=== PATIENT | female | born 1965 | race African-American/Black ===

== ENCOUNTER 2020-02-29 15:23 | Inpatient (IN) | payer OTHER ==
--- NOTE | 2020-02-29 15:42 | BHS.RME ---
2019 N Coronavirus Screen - COVID-19 Screening Questions Dx of COVID-19 or had a positive test in the last 4 weeks?: No Contact with known/suspected COVID patient in last 14 days?: No Any of these symptoms or contact with someone who has?: None Traveled domestically/internationally in the last 14 days?: No Screen score: 0 Screen result: Further Evaluation Substance Use & Tx History - Substance Use History Alcohol Substance amount: 7 Nips Frequency of use: Daily Substance route: Oral Date of Last Use: 02/28/20 (Denies Seizures, Endorses 10 blackouts , last 6 months ago, Endorses daily eyeopener, First used at 13yo) Other Opiates/Synthetics Substance amount: Percocet 10 pills Frequency of use: Daily Substance route: Oral Date of Last Use: 02/29/20 (Denies OD, denies Narcan at home, first used in 50s.) Nicotine Substance amount: 1PPD Frequency of use: Daily Substance route: Smoking Date of Last Use: 02/29/20 (First used at 13yo) Physical/Psych/Mental Status - Behavior General Behavior: Increased activity (restlessness, agitation) Eye Contact: Normal - Cooperativeness Cooperativeness: Cooperative - Thinking Thought Processes: Logical, Goal Directed Thought content: Future oriented Perceptions: Hallucinations (auditory, visual, olfactory) (Devil saying that its ok to keep doing what you are doing. Pt. denies any thoughts of harming herself or anyone else. Pt. endorses seeing spots.) - Physical Health Problems Is patient presently having any pain?: Yes (Pain abdomen more prominent in the epigastrium) Does patient presently have any injuries (include location): No Does patient currently have a fever: No Is patient : No COWS - Scale Resting Pulse: 1= [place] 81-100 Sweatin= Chills/Flushing Restless Observation: 1= Difficult to Sit Still Pupil Size: 0= Normal to Room Light Bone or Joint Aches: 1= Mild Discomfort Runny Nose/ Eye Tearin= None GI Upset > 30mins: 5=Frequent Vomit/Diarrhea Tremor Observation: 2= Slight Tremor Visible Yawning Observation: 0= None Anxiety or Irritability: 2=Irritable/Anxious Goose Flesh Skin: 3=Piloerection COWS Score: 16 CIWA Nausea/Vomitin-Int. Nausea w/Dry Heave Muscle Tremors: 3 Anxiety: 3 Agitation: 3 Paroxysmal Sweats: 2 Orientation: 0-Oriented Tacttile Disturbances: 4-Moderate Hallucinations Auditory Disturbances: 5-Severe Hallucinations Visual Disturbances: 2-Mild Sensitivity Headache: 2-Mild CIWA-Ar Total Score: 28
--- NOTE | 2020-02-29 16:20 | HP ---
COWS - Scale Resting Pulse: 1= [place] 81-100 Sweatin= Chills/Flushing Restless Observation: 1= Difficult to Sit Still Pupil Size: 0= Normal to Room Light Bone or Joint Aches: 1= Mild Discomfort Runny Nose/ Eye Tearin= None GI Upset > 30mins: 5=Frequent Vomit/Diarrhea Tremor Observation: 2= Slight Tremor Visible Yawning Observation: 0= None Anxiety or Irritability: 2=Irritable/Anxious Goose Flesh Skin: 3=Piloerection COWS Score: 16 CIWA Score Nausea/Vomitin-Int. Nausea w/Dry Heave Muscle Tremors: 3 Anxiety: 3 Agitation: 3 Paroxysmal Sweats: 2 Orientation: 0-Oriented Tacttile Disturbances: 4-Moderate Hallucinations Auditory Disturbances: 5-Severe Hallucinations Visual Disturbances: 2-Mild Sensitivity Headache: 2-Mild CIWA-Ar Total Score: 28 - Admission Criteria [facility] Guidelines: Admission for Medically Managed Detox: Requires at least one of the followin. CIWA greater than 12 2. Seizures within the past 24 hours 3. Delirium tremens within the past 24 hours 4. Hallucinations within the past 24 hours 5. Acute intervention needed for co occurring medical disorder 6. Acute intervention needed for co occurring psychiatric disorder 7. Severe withdrawal that cannot be handled at a lower level of care (continued vomiting, continued diarrhea, abnormal vital signs) requiring intravenous medication and/or fluids 8. Patient presents the following: CIWA greater than 12 Admission Criteria Met: Admission criteria met Admitting History and Physical - Admission Chief Complaint: "Fatemeh I got an addiction to alcohol pills, cause I have a problem" History of Present Illness: Pt. presents for detox form alcohol and to stop taking Percocets for chronic back pain. Pt. sttes that the percocets are prescribed by her pain management doctor. ISTOP confirmed prescriptions of Percocet 60 pills for the month, which patient stated she finished in a week. Pt. states she was concerned about her increasing drinking while taking the Percocet and decided to come back to Detox. Pt. completed Detox here from 09/21/19 to 09/27/19. Pt. states she was sober for 6 months and then relapsed because of stress. Pt. endorses having Pancreatitis in the past because of alcohol. Pt. endorses taking Famotidine, Seroquel, and Symbicort. Pt. does not recall the other medications that she takes. Pt. states she does not take Trazodone any more because she "took like 8 of them and it doesnt work." Pt. states she was treated for TB 27 years ago. Pt. states she was told awhile ago in group home that she had Syphillis but denies ever being treated for it. PMHx: Osteoporosis, Sciatca, COPD, GERD PSHx: Denies Psych: Depression Social: Rents a house Legal: None - Substance Use History Alcohol Substance amount: 7 Nips Frequency of use: Daily Substance route: Oral Date of Last Use: 02/28/20 (Denies Seizures, Endorses 10 blackouts , last 6 months ago, Endorses daily eyeopener, First used at 13yo) Other Opiates/Synthetics Substance amount: Percocet 10 pills Frequency of use: Daily Substance route: Oral Date of Last Use: 02/29/20 (Denies OD, denies Narcan at home, first used in 50s.) Nicotine Substance amount: 1PPD Frequency of use: Daily Substance route: Smoking Date of Last Use: 02/29/20 (First used at 13yo) Marijuana 3 joints/day Smoke First used at 13, Last used yesterday History Source: Patient Limitations to Obtaining History: No Limitations - Past Medical History HORSE TREKKING GUIDE: No: CVA, Seizure, TIA Cardiovascular: Yes: Hyperlipdemia. No: Deep Vein Thrombosis, [place] Pulmonary: Yes: COPD. No: Pulmonary Embolus Gastrointestinal: Yes: GERD, GI Bleed (6 months ago, drinking and then her stool started turning black), Pancreatitis Hepatobiliary: No: Hepatitis B, Hepatitis C Heme/Onc: No: Sickle Cell Disease, Sickle Cell Trait Infectious Disease: Yes: Tuberculosis (Hx. of TB 27 years ago). No: AIDS, HIV Psych: Yes: Addictions, Depression Musculoskeletal: Yes: Chronic low back pain Endocrine: Yes: Diabetes Insipidus (Pre-Diabetic) - Past Surgical History Past Surgical History: Yes: None - Smoking History Smoking history: Current every day smoker Have you smoked in the past 12 months: Yes Aproximately how many cigarettes per day: 20 - Alcohol/Substance Use Hx Alcohol Use: Yes Number of Drinks Daily: 7 History of Substance Use: reports: Marijuana, Prescription (Percocets) Admission ROS S - [facility] Allergies/Adverse Reactions: Allergies Allergy/AdvReac Type Severity Reaction Status Date / Time No Known Drug Allergies AdvReac Verified 09/21/19 12:40 Exam Limitations: No Limitations - Review of Systems Constitutional: Chills, Diaphoresis (drenching sweat day and night), Loss of Appetite (Has not eaten in 7 days), Unintentional Wgt. Loss (Lost 3 lbs. over te last week) EENT: reports: Blurred Vision (chronic. getting worse over years), Other (dry throat). denies: Difficulty Swallowing, Throat Pain Respiratory: denies: Cough, Shortness of Breath, Wheezing Cardiac: denies: Chest Pain, Palpitations GI: reports: Nausea, Poor Appetite, Vomiting (Over 10 times). denies: Constipated, Diarrhea, Difficulty Swallowing, Rectal Bleeding, Tarry Stools : denies: Burning, Dysuria Musculoskeletal: reports: Back Pain (chronic), Muscle Weakness (Generalized weakness) Integumentary: reports: Pruritus (Has been going on for 7 days). denies: Bruising, Rash Neuro: reports: Numbness (Alternated from one hand to the other for the last year), Tingling (Alternated from one hand to the other for the last year), Weakness (generalized). denies: Headache, Seizure, Tremors Endocrine: reports: Excessive Sweating Hematology: denies: Blood Clots Psychiatric: reports: Orientated x3, Anxious, Depressed Patient History - Patient Medical History Hx Asthma: Yes Hx Chronic Obstructive Pulmonary Disease (COPD): No Hx Cardiac Disorders: No Hx Hypertension: No Hx Seizures: No Hx Diabetes: No Hx Gastrointestinal Disorders: Yes (Hx of acid reflux.) Hx Genitourinary Disorders: No Hx Sexually Transmitted Disorders: Yes (Hx of syphillis.) Hx Renal Disease (ESRD): No Hx Depression: Yes (NOT IN [place]) Hx Suicide Attempt: No Hx Schizophrenia: No - Patient Surgical History Past Surgical History: No - PPD History Date: 09/23/19 - Reproductive History Patient is a Female of Child Bearing Age (11 -55 yrs old): Yes Patient : No - Smoking Cessation Smoking history: Current every day smoker Have you smoked in the past 12 months: Yes Aproximately how many cigarettes per day: 20 Hx Chewing Tobacco Use: No Initiated information on smoking cessation: Yes 'Breaking Loose' booklet given: 02/29/20 - Substance & Tx. History Hx Alcohol Use: Yes Substance Use Type: Alcohol, Heroin, Opiates, Prescribed Admission Physical Exam [facility] - Physical General Appearance: Yes: Mild Distress, Anxious HEENTM: Yes: EOMI, Hearing grossly Normal, Normocephalic, Normal Voice, CARLOZ, Pharynx Normal, Scleral Ictenus R, Scleral Ictenus L. No: Thrush, [place] Respiratory: Yes: Chest Non-Tender, No Respiratory Distress, No Accessory Muscle Use, Wheezing. No: Crackles Neck: Yes: Within Normal Limits, Trachea in good position Breast: Yes: Breast Exam Deferred Cardiology: Yes: Regular Rhythm, S1, S2, Tachycardia. No: JVD Abdominal: Yes: Soft, Decreased BS, Tenderness (Diffuse but most prominent in Epigastrium and RLQ) Genitourinary: No: Burning Back: Yes: Within Normal Limits, Normal Inspection. No: CVA Tenderness Musculoskeletal: Yes: Gait Steady. No: Back pain Extremities: Yes: Normal Inspection, Normal Range of Motion, Non-Tender. No: Coldness, Pedal Edema, Swelling, Calf Tenderness Neurological: Yes: Alert, Motor Strength 5/5, Normal Mood/Affect, Normal Response. No: Facial Droop, Numbness Integumentary: Yes: Normal Color, Dry, Warm Cleared for Admission [facility] - Detox or Rehab [facility] Level of Care: Medically Managed Detox Regimen/Protocol: Clonidine/Valium Claeared for Rehab Admission: No Breathalyzer - Breathalyzer Breathalyzer: 0 POC Urine test - Control test control: No Urine Drug Screen - Test Device Lot number: [id number] Expiration date: 12/26/20 - Control Is test valid?: Yes - Results Drug screen NEGATIVE: No Urine drug screen results: THC-Marijuana, OXY-Oxycodone Inpatient Rehab Admission - Rehab Decision to Admit Inpatient rehab admission?: No
[2020-02-29 16:33] VITALS: BMI 25.4
[2020-02-29] MEDS ORDERED: NICOTINE POLACRILEX 2 MG GUM BUC PRN ×2 (16:53→16:57)
[2020-02-29] MEDS ORDERED: ACETAMINOPHEN 325 MG TABLET (FP) PO PRN ×2 (16:53)
[2020-02-29] MEDS ORDERED: MAG HYDROX/AL HYDROX/SIMETH 30 ML UNIT-DOSE CUP PO PRN (16:53)
[2020-02-29] MEDS ORDERED: MAGNESIUM CITRATE 300 ML BOTTLE PO PRN (16:53)
[2020-02-29] MEDS ORDERED: MENTHOL/PHENOL 1 EACH UD MM PRN (16:53)
[2020-02-29] MEDS ORDERED: IBUPROFEN 400 MG TABLET (FP) PO PRN (16:53)
[2020-02-29] MEDS ORDERED: BISMUTH SUBSALICYLATE 524 MG/30 ML UD PO PRN (16:53)
[2020-02-29] MEDS ORDERED: ONDANSETRON *ODT* 4 MG TABLET SL PRN (16:53)
[2020-02-29] MEDS ORDERED: MAGNESIUM HYDROX 2400MG/30ML ORAL SUSPENSION 30 ML CUP PO PRN (16:53)
[2020-02-29] MEDS ORDERED: cloNIDine HCL 0.1 MG TABLET PO PRN (16:58)
[2020-02-29] MEDS ORDERED: PENICILLIN G BENZATHINE 2,400,000 UNIT/4 ML PFS IM ONE (17:08)
[2020-02-29] MEDS ORDERED: TRIMETHOBENZAMIDE HCL 200MG/2ML INJ IM ONE (17:21)
[2020-02-29] MEDS: hydrOXYzine PAMOATE 25 MG CAPSULE (FP) PO SCH ×2 (18:26→22:08)
[2020-02-29] MEDS: diazePAM 5 MG TABLET PO SCH ×2 (18:26→22:08)
--- NOTE | 2020-02-29 19:03 | PN ---
Teaching Attending Note Name of Resident: Jose Luis Mckenzie ATTENDING PHYSICIAN STATEMENT I saw and evaluated the patient. I reviewed the resident's note and discussed the case with the resident. I agree with the resident's findings and plan as documented. SUBJECTIVE: 54 y.o. female requesting detox from alcohol use , s/p recent relapse. on RX Percocet which she claims she is misuring , abusing w/o discussing w/ prescriber . OBJECTIVE: wnwd ASSESSMENT AND PLAN: AUD - Valium detox Opiate abuse vs misuse - pt to address w/ prescriber .
[2020-02-29] MEDS: MELATONIN 5 MG TABLETS PO SCH (22:08)
[2020-02-29] MEDS: THIAMINE HCL 100 MG TABLET (FP) PO SCH (22:08)
[2020-02-29] MEDS: BUDESONIDE/FORMETEROL FUMARATE 80/4.5 mcg INHALER IH SCH (22:10)
[2020-03-01] MEDS: hydrOXYzine PAMOATE 25 MG CAPSULE (FP) PO SCH ×2 (06:37→10:40)
[2020-03-01] MEDS: diazePAM 5 MG TABLET PO SCH ×4 (06:37→22:08)
--- NOTE | 2020-03-01 08:59 | CONSULT ---
[facility] Psychiatric Consult - Data Date of interview: 03/01/20 Admission source: Self-referred Identifying data: Ms Pimentel is a 54 years old single Black female, mother of 3 children, unemployed receiving unemployment benefit, living with her boyfriend seeking detox treatment for alcohol, opioid and cannabis Substance Abuse History: Reports history of alcohol, prcocet and marijuana use. Refer to addiction counselor's summary for further information Medical History: Significant for COPD, GERD, osteoporosis, sciatica, history of treatment for pancreatitis, +PPD while incarcerated and syphilis. Smokes cigarettes 1 ppd Psychiatric History: Patient is known for one previous admission to this facility. During that admission, she reported that she saw a psychiatrist for only 2 weeks in 2010 after her son was murdered. She was diagnosed with MDD and started on medication. She said she hardly took that medication. She complained of sleeping poorly and she was prescribed Belsomra 10 mg/hs prn. Now she reports that after she was discharged from this facility, she was referred to [facility] for inpatient rehab. She said that while there, she was prescribed Seroquel which was raised up to 400 mg/bid by their staff psychiatrist for depression and anxiety. She said upon completing inpatient rehab she was referred to outpatient substance abuse at [facility] and continues to receives medications. Told script writer that she stopped taking medications for over 2 weeks after relapsing. Denies previous psychiatric hospitalization or suicidal attempt. At present, reports feeling depressed, anxious and sleeping poorly. Requests to resume Seroquel and insists of having it twice daily Physical/Sexual Abuse/Trauma History: Denies history of abuse as a child or DV relationship as an adult Mental Status Exam - Mental Status Exam Alert and Oriented to: Time, Place, Person Cognitive Function: Fair Patient Appearance: Disheveled Mood: Depressed, Anxious, Irritable Affect: Appropriate Patient Behavior: Cooperative Speech Pattern: Clear Voice Loudness: Normal Thought Process: Intact, Goal Oriented Hallucinations: Denies Suicidal Ideation: Denies Homicidal Ideation: Denies Insight/Judgement: Poor Sleep: Poorly Appetite: Poor Muscle strength/Tone: Normal Gait/Station: Normal Psychiatric Findings - Problem List ([place] 1, 2,3) (1) Substance induced mood disorder Current Visit: Yes Status: Acute (2) Substance-induced anxiety disorder Current Visit: Yes Status: Acute (3) Substance-induced sleep disorder Current Visit: Yes Status: Acute (4) Alcohol dependence, uncomplicated Current Visit: Yes Status: Acute (5) Opioid dependence Current Visit: Yes Status: Acute (6) Cannabis dependence Current Visit: Yes Status: Acute (7) Nicotine dependence Current Visit: No Status: Chronic (8) COPD (chronic obstructive pulmonary disease) Current Visit: Yes Status: Chronic (9) Osteoporosis Current Visit: Yes Status: Chronic (10) Sciatica associated with disorder of lumbar spine Current Visit: Yes Status: Chronic (11) GERD (gastroesophageal reflux disease) Current Visit: No Status: Chronic (12) PPD positive, treated Current Visit: Yes Status: Acute - Initial Treatment Plan Initial Treatment Plan: 1) Start Seroquel 50 mg po BID. 2) Continue inpatient detoxification
--- NOTE | 2020-03-01 09:09 | EKG ---
Test Reason : Blood Pressure : / mmHG Vent. Rate : 066 BPM Atrial Rate : 066 BPM P-R Int : 136 ms QRS Dur : 094 ms QT Int : 414 ms P-R-T Axes : 044 068 062 degrees QTc Int : 434 ms NORMAL SINUS RHYTHM NORMAL ECG WHEN COMPARED WITH ECG OF 22-SEP-2019 10:05, NO SIGNIFICANT CHANGE WAS FOUND Confirmed by MD NAWAF, ALKA ([id number]) on 03/01/2020 9:08:57 AM Referred By: Confirmed By:ALKA MCCRACKEN MD
[2020-03-01] MEDS ORDERED: NICOTINE 7 MG/24 HOURS TOPICAL PATCH TD SCH (10:00)
[2020-03-01] MEDS ORDERED: METHADONE (DETOX) 20 MG, METHADONE (DETOX) 5 MG PO SCH (10:04)
[2020-03-01] MEDS ORDERED: METHADONE HCL 10 MG TABLET (FOR DETOX USE ONLY) PO ONE (10:04)
[2020-03-01] MEDS ORDERED: METHADONE HCL 5 MG TABLET (FOR DETOX USE ONLY) ONE (10:18)
[2020-03-01] MEDS ORDERED: METHADONE HCL 10 MG TABLET (FOR DETOX USE ONLY) ONE (10:18)
[2020-03-01] MEDS: FAMOTIDINE 20 MG TABLET PO SCH (10:22)
[2020-03-01] MEDS: QUEtiapine FUMARATE 50 MG TABLET PO SCH ×2 (10:22→22:08)
[2020-03-01] MEDS: BUDESONIDE/FORMETEROL FUMARATE 80/4.5 mcg INHALER IH SCH ×2 (10:26→22:08)
[2020-03-01] MEDS: NICOTINE 21 MG/24 HOURS TOPICAL PATCH TD SCH (10:27)
[2020-03-01] MEDS: PRENATAL VITAMINS W/ FOLIC ACID TABLET (FP) PO SCH (10:27)
[2020-03-01] MEDS: NICOTINE POLACRILEX 4 MG GUM BUC PRN ×3 (10:28→20:32)
--- NOTE | 2020-03-01 10:54 | PN ---
[facility] CIWA - CIWA Score Nausea/Vomitin-Mild Nausea/No Vomiting Muscle Tremors: 3 Anxiety: 3 Agitation: 3 Paroxysmal Sweats: 3 Orientation: 0-Oriented Tacttile Disturbances: 0-None Auditory Disturbances: 0-None Visual Disturbances: 0-None Headache: 0-None Present CIWA-Ar Total Score: 13 BHS COWS - Scale Resting Pulse: 1= [place] 81-100 Sweatin=Flushed/Facial Moisture Restless Observation: 1= Difficult to Sit Still Pupil Size: 0= Normal to Room Light Bone or Joint Aches: 2= Severe Diffuse Aches Runny Nose/ Eye Tearin= Nasal Congestion GI Upset > 30mins: 2= Nausea/Diarrhea Tremor Observation of Outstretched Hands: 2= Slight Tremor Visible Yawning Observation: 1= 1-2x During Session Anxiety or Irritability: 2=Irritable/Anxious Goose Flesh Skin: 3=Piloerection COWS Score: 17 BHS Progress Note (SOAP) Subjective: bone pain sweats shakes chills body aches nausea hot/cold flashes weak fatigue interrupted sleep headache skin feels itchy Objective: 03/01/20 10:50 Vital Signs Temperature 98.1 F 03/01/20 08:21 Pulse Rate 81 03/01/20 08:21 Respiratory Rate 16 03/01/20 08:21 Blood Pressure 102/50 L 03/01/20 08:21 O2 Sat by Pulse Oximetry (%) 99 03/01/20 08:21 Laboratory Tests 02/29/20 18:46 POC Urine HCG, Qual Negative rest of labs pending pt is in withdrawals from the percocets she has been taking not as prescribed. Pt states she is getting her percocet from her pain management Dr. Rios and she know he will give it to her as any given time so he decided to come to our facility to get detox and will not be going back to Dr. Rios for any service. pt was encouraged to manage her sciatica with other methods while in detox and is willing to try. pt is very concerned about how she became so addicted to the pills but is very fortunate she is here and getting the treatment for the addictive drug. Assessment: 03/01/20 10:54 withdrawals Plan: methadone taper ordered to start today with 25mg along with her valium taper for alcohol. pt in agreement with set protocol taper increase fluids lidocaine patch daily motrin 800mg prn tid tylenol prn roboxin prn
[2020-03-01 10:59] LABS: HEMATOCRIT 43.1 % (32.4-45.2); MCHC 32.5 g/dl (32.0-36.0); MEAN CELL VOLUME 95.6 fl (80-96); MEAN PLT VOLUME 8.9 fl (7.5-11.1); PLATELET COUNT 283 K/MM3 (134-434); RBC 4.51 M/mm3 (3.60-5.2); RDW 14.2 % (11.6-15.6); WHITE BLOOD COUNT 6.8 K/mm3 (4.0-10.0)
[2020-03-01 11:21] LABS: POTASSIUM 3.6 mmol/L (3.5-5.1)
[2020-03-01 11:26] LABS: ALBUMIN 3.5 g/dl (3.4-5.0); CALCIUM 9.8 mg/dL (8.5-10.1)
[2020-03-01 11:30] LABS: CREATININE 0.8 mg/dL (0.55-1.3)
[2020-03-01 11:31] LABS: BILIRUBIN,TOTAL 0.6 mg/dL (0.2-1); TOT PROT 6.8 g/dl (6.4-8.2)
[2020-03-01] MEDS: LIDOCAINE 5% TOPICAL PATCH TP SCH (11:40)
[2020-03-01] MEDS: METHOCARBAMOL 500 MG TABLET PO PRN (16:41)
[2020-03-01] MEDS: THIAMINE HCL 100 MG TABLET (FP) PO SCH (22:08)
[2020-03-01] MEDS: MELATONIN 5 MG TABLETS PO SCH (22:08)
[2020-03-01] MEDS: LIDOCAINE PATCH REMOVAL MC SCH (22:09)
[2020-03-02] MEDS: diazePAM 5 MG TABLET PO SCH ×3 (05:59→22:27)
[2020-03-02] MEDS: METHOCARBAMOL 500 MG TABLET PO PRN ×2 (06:03→15:28)
[2020-03-02] MEDS: IBUPROFEN 400 MG TABLET (FP) PO PRN (07:42)
[2020-03-02] MEDS: NICOTINE POLACRILEX 4 MG GUM BUC PRN ×4 (08:47→20:58)
--- NOTE | 2020-03-02 09:59 | PN ---
[facility] CIWA - CIWA Score Nausea/Vomitin-No Nausea/No Vomiting Muscle Tremors: 2 Anxiety: 2 Agitation: 2 Paroxysmal Sweats: 2 Orientation: 0-Oriented Tacttile Disturbances: 0-None Auditory Disturbances: 0-None Visual Disturbances: 0-None Headache: 0-None Present CIWA-Ar Total Score: 8 BHS COWS - Scale Resting Pulse: 0= [place] 80 or Below Sweatin= Chills/Flushing Restless Observation: 1= Difficult to Sit Still Pupil Size: 0= Normal to Room Light Bone or Joint Aches: 2= Severe Diffuse Aches Runny Nose/ Eye Tearin= Nasal Congestion GI Upset > 30mins: 0= None Tremor Observation of Outstretched Hands: 1= Tremor [place], Not Seen Yawning Observation: 1= 1-2x During Session Anxiety or Irritability: 2=Irritable/Anxious Goose Flesh Skin: 0=Smooth Skin COWS Score: 9 BHS Progress Note (SOAP) Subjective: body aches interrupted sleep irritable agitation sweats restless Objective: 03/02/20 09:58 Vital Signs Temperature 97.3 F L 03/02/20 06:30 Pulse Rate 64 03/02/20 06:30 Respiratory Rate 20 03/02/20 06:30 Blood Pressure 111/66 03/02/20 06:30 O2 Sat by Pulse Oximetry (%) 98 03/02/20 06:30 Laboratory Tests 02/29/20 02/29/20 02/29/20 07:00 07:00 18:46 WBC RBC Hgb Hct MCV MCH MCHC RDW Plt Count MPV Sodium Potassium Chloride Carbon Dioxide Anion Gap BUN Creatinine Est GFR (CKD-EPI)AfAm Est GFR (CKD-EPI)NonAf Random Glucose Calcium Total Bilirubin AST ALT Alkaline Phosphatase Total Protein Albumin POC Urine HCG, Qual Negative Syphilis Serology Reactive A* RPR Titer Reactive 1:1 H Hep C Ab Diagnostic 03/01/20 03/01/20 03/01/20 07:00 07:00 07:00 WBC 6.8 RBC 4.51 Hgb 14.0 Hct 43.1 D MCV 95.6 MCH 31.0 D MCHC 32.5 RDW 14.2 Plt Count 283 MPV 8.9 Sodium 137 Potassium 3.6 Chloride 95 L Carbon Dioxide 34 H Anion Gap 8 BUN 13.0 Creatinine 0.8 Est GFR (CKD-EPI)AfAm 97.55 Est GFR (CKD-EPI)NonAf 84.17 Random Glucose 142 H Calcium 9.8 Total Bilirubin 0.6 AST 17 ALT 28 Alkaline Phosphatase 86 Total Protein 6.8 Albumin 3.5 POC Urine HCG, Qual Syphilis Serology RPR Titer Hep C Ab Diagnostic <0.1 labs noted random glucose 142; will repeat lab aaox3 ambulating no acute distress Syphilis Serology 1:1 reactive; pt states she was exposed and treated in the past. Assessment: 03/02/20 10:02 withdrawals Plan: continue detox repeat random glucose ordered motrin prn lidocaine patch tylenol prn roboxin prn
[2020-03-02] MEDS ORDERED: METHADONE HCL 10 MG TABLET (FOR DETOX USE ONLY) PO ONE (10:00)
[2020-03-02] MEDS: NICOTINE 21 MG/24 HOURS TOPICAL PATCH TD SCH (10:19)
[2020-03-02] MEDS: BUDESONIDE/FORMETEROL FUMARATE 80/4.5 mcg INHALER IH SCH ×2 (10:20→22:29)
[2020-03-02] MEDS: PRENATAL VITAMINS W/ FOLIC ACID TABLET (FP) PO SCH (10:21)
[2020-03-02] MEDS: QUEtiapine FUMARATE 50 MG TABLET PO SCH ×2 (10:21→22:27)
[2020-03-02] MEDS: FAMOTIDINE 20 MG TABLET PO SCH (10:22)
[2020-03-02] MEDS: LIDOCAINE 5% TOPICAL PATCH TP SCH (10:23)
--- NOTE | 2020-03-02 13:42 | PN ---
S Progress Note Note: Patient reports sleeping poorly despite taking Seroquel 50 mg/hs and Melatonin5 mg/hs. Discussed with patient hypnotic properties of Belsomra and she agreed t try it. Will order Belsomra 10 mg/hs prn for insomnia
[2020-03-02] MEDS: diazePAM 5 MG TABLET PO PRN (17:33)
[2020-03-02] MEDS: SUVOREXANT 10 MG TABLET PO PRN (22:26)
[2020-03-02] MEDS: THIAMINE HCL 100 MG TABLET (FP) PO SCH (22:27)
[2020-03-02] MEDS: MELATONIN 5 MG TABLETS PO SCH (22:28)
[2020-03-02] MEDS: LIDOCAINE PATCH REMOVAL MC SCH (22:28)
[2020-03-03] MEDS: diazePAM 5 MG TABLET PO SCH ×2 (05:58→17:51)
[2020-03-03] MEDS: METHOCARBAMOL 500 MG TABLET PO PRN ×2 (05:58→15:04)
[2020-03-03] MEDS: NICOTINE POLACRILEX 4 MG GUM BUC PRN ×2 (07:24→10:17)
[2020-03-03] MEDS ORDERED: METHADONE HCL 10 MG TABLET (FOR DETOX USE ONLY) ONE (09:12)
[2020-03-03] MEDS ORDERED: METHADONE HCL 5 MG TABLET (FOR DETOX USE ONLY) ONE (09:12)
[2020-03-03] MEDS ORDERED: METHADONE (DETOX) 10 MG, METHADONE (DETOX) 5 MG PO ONE (10:00)
[2020-03-03] MEDS ORDERED: METHADONE HCL 10 MG TABLET (FOR DETOX USE ONLY) PO ONE (10:00)
[2020-03-03] MEDS: NICOTINE 21 MG/24 HOURS TOPICAL PATCH TD SCH (10:08)
[2020-03-03] MEDS: BUDESONIDE/FORMETEROL FUMARATE 80/4.5 mcg INHALER IH SCH ×2 (10:08→22:35)
[2020-03-03] MEDS: IBUPROFEN 400 MG TABLET (FP) PO PRN ×2 (10:09→19:50)
[2020-03-03] MEDS: PRENATAL VITAMINS W/ FOLIC ACID TABLET (FP) PO SCH (10:10)
[2020-03-03] MEDS: FAMOTIDINE 20 MG TABLET PO SCH (10:11)
[2020-03-03] MEDS: QUEtiapine FUMARATE 50 MG TABLET PO SCH ×2 (10:11→22:35)
[2020-03-03] MEDS: LIDOCAINE 5% TOPICAL PATCH TP SCH (10:12)
[2020-03-03] MEDS: diazePAM 5 MG TABLET PO PRN ×2 (10:15→15:04)
--- NOTE | 2020-03-03 11:40 | PN ---
[facility] CIWA - CIWA Score Nausea/Vomitin-No Nausea/No Vomiting Muscle Tremors: 2 Anxiety: 1-Mildly Anxious Agitation: 1-Slight > Activity Paroxysmal Sweats: 1-Minimal Palms Moist Orientation: 0-Oriented Tacttile Disturbances: 0-None Auditory Disturbances: 0-None Visual Disturbances: 0-None Headache: 0-None Present CIWA-Ar Total Score: 5 S COWS - Scale Resting Pulse: 1= [place] 81-100 Sweatin= Chills/Flushing Restless Observation: 1= Difficult to Sit Still Pupil Size: 0= Normal to Room Light Bone or Joint Aches: 1= Mild Discomfort Runny Nose/ Eye Tearin= None GI Upset > 30mins: 0= None Tremor Observation of Outstretched Hands: 1= Tremor [place], Not Seen Yawning Observation: 0= None Anxiety or Irritability: 2=Irritable/Anxious Goose Flesh Skin: 0=Smooth Skin COWS Score: 7 S Progress Note (SOAP) Subjective: bone pain chills hot/cold sweats interrupted sleep Objective: 03/03/20 11:39 Vital Signs Temperature 97.8 F 03/03/20 09:01 Pulse Rate 82 03/03/20 09:01 Respiratory Rate 16 03/03/20 09:01 Blood Pressure 138/85 03/03/20 09:01 O2 Sat by Pulse Oximetry (%) 95 03/03/20 09:01 Laboratory Tests 02/29/20 02/29/20 02/29/20 07:00 07:00 17:50 WBC RBC Hgb Hct MCV MCH MCHC RDW Plt Count MPV Sodium Potassium Chloride Carbon Dioxide Anion Gap BUN Creatinine Est GFR (CKD-EPI)AfAm Est GFR (CKD-EPI)NonAf Random Glucose Calcium Total Bilirubin AST ALT Alkaline Phosphatase Total Protein Albumin POC Urine HCG, Qual Syphilis Serology Reactive A* RPR Titer Reactive 1:1 H COVID-19 ([facility]) Not detected Hep C Ab Diagnostic 02/29/20 03/01/20 03/01/20 18:46 07:00 07:00 WBC 6.8 RBC 4.51 Hgb 14.0 Hct 43.1 D MCV 95.6 MCH 31.0 D MCHC 32.5 RDW 14.2 Plt Count 283 MPV 8.9 Sodium 137 Potassium 3.6 Chloride 95 L Carbon Dioxide 34 H Anion Gap 8 BUN 13.0 Creatinine 0.8 Est GFR (CKD-EPI)AfAm 97.55 Est GFR (CKD-EPI)NonAf 84.17 Random Glucose 142 H Calcium 9.8 Total Bilirubin 0.6 AST 17 ALT 28 Alkaline Phosphatase 86 Total Protein 6.8 Albumin 3.5 POC Urine HCG, Qual Negative Syphilis Serology RPR Titer COVID-19 ([facility]) Hep C Ab Diagnostic 03/01/20 03/03/20 07:00 07:20 WBC RBC Hgb Hct MCV MCH MCHC RDW Plt Count MPV Sodium Potassium Chloride Carbon Dioxide Anion Gap BUN Creatinine Est GFR (CKD-EPI)AfAm Est GFR (CKD-EPI)NonAf Random Glucose 115 H Calcium Total Bilirubin AST ALT Alkaline Phosphatase Total Protein Albumin POC Urine HCG, Qual Syphilis Serology RPR Titer COVID-19 ([facility]) Hep C Ab Diagnostic <0.1 labs noted random glucose is 115 better than previous lab result of 142. patient teaching on monitoring sugar intake and sugary foods to prevent pre- diabetes. encourage water intake aaox3 ambulating no acute distress Assessment: 03/03/20 11:42 withdrawals pt was asked if she in fact was hearing voices as discussed on admission; pt states the voices were telling her to keep drinking and using drugs to continue hurting herself with the use of polysubstance use. pt states she hears this especially when she is under the influence of drugs and alcohol. pt was asked since her admission to detox if she is still hearing voices. pt states she no longer hears voices. the only voice I hear is you talking to me. Pt was asked if she wants to hurt herself or others, pt states absolutely not! pt will continue with her detox taper as ordered Plan: continue detox increase fluids
[2020-03-03] MEDS: LIDOCAINE PATCH REMOVAL MC SCH (22:35)
[2020-03-03] MEDS: MELATONIN 5 MG TABLETS PO SCH (22:35)
[2020-03-03] MEDS: THIAMINE HCL 100 MG TABLET (FP) PO SCH (22:36)
[2020-03-03] MEDS: SUVOREXANT 10 MG TABLET PO PRN (22:38)
[2020-03-04] MEDS ORDERED: diazePAM 5 MG TABLET PO ONE ×2 (06:00→14:06)
[2020-03-04] MEDS: IBUPROFEN 400 MG TABLET (FP) PO PRN ×2 (08:48→17:06)
[2020-03-04] MEDS: METHOCARBAMOL 500 MG TABLET PO PRN ×2 (08:48→15:05)
[2020-03-04] MEDS ORDERED: METHADONE HCL 10 MG TABLET (FOR DETOX USE ONLY) PO ONE (10:00)
[2020-03-04] MEDS: QUEtiapine FUMARATE 50 MG TABLET PO SCH ×2 (10:23→22:11)
[2020-03-04] MEDS: PRENATAL VITAMINS W/ FOLIC ACID TABLET (FP) PO SCH (10:23)
[2020-03-04] MEDS: FAMOTIDINE 20 MG TABLET PO SCH (10:24)
[2020-03-04] MEDS: LIDOCAINE 5% TOPICAL PATCH TP SCH (10:24)
[2020-03-04] MEDS: NICOTINE 21 MG/24 HOURS TOPICAL PATCH TD SCH (10:24)
[2020-03-04] MEDS: BUDESONIDE/FORMETEROL FUMARATE 80/4.5 mcg INHALER IH SCH ×2 (10:25→22:11)
[2020-03-04] MEDS: NICOTINE POLACRILEX 4 MG GUM BUC PRN ×2 (10:31→13:29)
--- NOTE | 2020-03-04 11:31 | PN ---
[facility] CIWA - CIWA Score Nausea/Vomitin-No Nausea/No Vomiting Muscle Tremors: 1-None Visible, but [place] Anxiety: 2 Agitation: 0-Normal Activity Paroxysmal Sweats: No Perspiration Orientation: 0-Oriented Tacttile Disturbances: 0-None Auditory Disturbances: 0-None Visual Disturbances: 0-None Headache: 0-None Present CIWA-Ar Total Score: 3 S COWS - Scale Resting Pulse: 0= IN 80 or Below Sweatin= No chills or Flushing Restless Observation: 0= Sits Still Pupil Size: 0= Normal to Room Light Bone or Joint Aches: 2= Severe Diffuse Aches Runny Nose/ Eye Tearin= None GI Upset > 30mins: 0= None Tremor Observation of Outstretched Hands: 0= None Yawning Observation: 0= None Anxiety or Irritability: 1=Feels Anxious/Irritable Goose Flesh Skin: 0=Smooth Skin COWS Score: 3 S Progress Note (SOAP) Subjective: Complaints of interrupted sleep, body aches and anxiety. Objective: 03/04/20 11:29 Vital Signs 03/04/20 03/04/20 05:52 08:46 Temperature 96.6 F L 98.2 F Pulse Rate 92 H 71 Respiratory 16 18 Rate Blood Pressure 124/85 143/72 O2 Sat by Pulse 95 97 Oximetry (%) Laboratory Last Values WBC 6.8 K/mm3 (4.0-10.0) 03/01/20 07:00 RBC 4.51 M/mm3 (3.60-5.2) 03/01/20 07:00 Hgb 14.0 GM/dL (10.7-15.3) 03/01/20 07:00 Hct 43.1 % (32.4-45.2) D 03/01/20 07:00 MCV 95.6 fl (80-96) 03/01/20 07:00 MCH 31.0 pg (25.7-33.7) D 03/01/20 07:00 MCHC 32.5 g/dl (32.0-36.0) 03/01/20 07:00 RDW 14.2 % (11.6-15.6) 03/01/20 07:00 Plt Count 283 K/MM3 (134-434) 03/01/20 07:00 MPV 8.9 fl (7.5-11.1) 03/01/20 07:00 Sodium 137 mmol/L (136-145) 03/01/20 07:00 Potassium 3.6 mmol/L (3.5-5.1) 03/01/20 07:00 Chloride 95 mmol/L (98-107) L 03/01/20 07:00 Carbon Dioxide 34 mmol/L (21-32) H 03/01/20 07:00 Anion Gap 8 MMOL/L (8-16) 03/01/20 07:00 BUN 13.0 mg/dL (7-18) 03/01/20 07:00 Creatinine 0.8 mg/dL (0.55-1.3) 03/01/20 07:00 Est GFR (CKD-EPI)AfAm 97.55 03/01/20 07:00 Est GFR (CKD-EPI)NonAf 84.17 03/01/20 07:00 Random Glucose 115 mg/dL (74-106) H 03/03/20 07:20 Calcium 9.8 mg/dL (8.5-10.1) 03/01/20 07:00 Total Bilirubin 0.6 mg/dL (0.2-1) 03/01/20 07:00 AST 17 U/L (15-37) 03/01/20 07:00 ALT 28 U/L (13-61) 03/01/20 07:00 Alkaline Phosphatase 86 U/L (45-117) 03/01/20 07:00 Total Protein 6.8 g/dl (6.4-8.2) 03/01/20 07:00 Albumin 3.5 g/dl (3.4-5.0) 03/01/20 07:00 POC Urine HCG, Qual Negative 02/29/20 18:46 Syphilis Serology Reactive (NONREACTIVE) A* 02/29/20 07:00 RPR Titer Reactive 1:1 (NONREACTIVE) H 02/29/20 07:00 COVID-19 ([facility]) Not detected (Not Detected) 02/29/20 17:50 Hep C Ab Diagnostic <0.1 s/co ratio (0.0-0.9) 03/01/20 07:00 Labs noted. Assessment: 03/04/20 11:30 Alert and oriented x3, in no acute respiratory distress. Full ROM, ambulating in the unit. Skin warm to touch without. Very mild withdrawal symptoms. Plan: Continue detox protocol. D/C in AM.
[2020-03-04] MEDS: SUVOREXANT 10 MG TABLET PO PRN (22:10)
[2020-03-04] MEDS: LIDOCAINE PATCH REMOVAL MC SCH (22:11)
[2020-03-04] MEDS: THIAMINE HCL 100 MG TABLET (FP) PO SCH (22:11)
[2020-03-04] MEDS: MELATONIN 5 MG TABLETS PO SCH (22:11)
[2020-03-05] MEDS ORDERED: METHADONE HCL 5 MG TABLET (FOR DETOX USE ONLY) PO ONE (06:00)
[2020-03-05] MEDS: METHOCARBAMOL 500 MG TABLET PO PRN (06:28)
[2020-03-05 07:08] VITALS: PULSE 83; TEMP 97.3
[2020-03-05] MEDS: NICOTINE POLACRILEX 4 MG GUM BUC PRN (07:53)
[2020-03-05 07:56] VITALS: BP 137/81
--- NOTE | 2020-03-05 09:29 | DS ---
[facility] Detox Discharge Summary Admission Date: 02/29/20 Discharge Date: 03/05/20 - History Present History: Alcohol Dependence, Cannabis Dependence, Opioid Dependence Additional Comments: Detox protocol completed with adverse effect, stable for discharge today. Alert and oriented x3, in no acute respiratory distress. Full ROM, ambulatory on the unit without assistance. Skin warm to touch without any lesions. Pertinent Past History: History of COPD, GERD, Osteoporosis, Sciatica, alcohol, percocet, cannabis and nicotine use disorder - Physical Exam Results Vital Signs: Vital Signs Temperature 97.3 F L 03/05/20 05:55 Pulse Rate 83 03/05/20 05:55 Respiratory Rate 20 03/05/20 05:55 Blood Pressure 137/81 03/05/20 07:45 O2 Sat by Pulse Oximetry (%) 94 L 03/05/20 05:55 Vital Signs 03/05/20 03/05/20 05:55 07:45 Temperature 97.3 F L Pulse Rate 83 Respiratory 20 Rate Blood Pressure 155/97 137/81 O2 Sat by Pulse 94 L Oximetry (%) Laboratory Last Values WBC 6.8 K/mm3 (4.0-10.0) 03/01/20 07:00 RBC 4.51 M/mm3 (3.60-5.2) 03/01/20 07:00 Hgb 14.0 GM/dL (10.7-15.3) 03/01/20 07:00 Hct 43.1 % (32.4-45.2) D 03/01/20 07:00 MCV 95.6 fl (80-96) 03/01/20 07:00 MCH 31.0 pg (25.7-33.7) D 03/01/20 07:00 MCHC 32.5 g/dl (32.0-36.0) 03/01/20 07:00 RDW 14.2 % (11.6-15.6) 03/01/20 07:00 Plt Count 283 K/MM3 (134-434) 03/01/20 07:00 MPV 8.9 fl (7.5-11.1) 03/01/20 07:00 Sodium 137 mmol/L (136-145) 03/01/20 07:00 Potassium 3.6 mmol/L (3.5-5.1) 03/01/20 07:00 Chloride 95 mmol/L (98-107) L 03/01/20 07:00 Carbon Dioxide 34 mmol/L (21-32) H 03/01/20 07:00 Anion Gap 8 MMOL/L (8-16) 03/01/20 07:00 BUN 13.0 mg/dL (7-18) 03/01/20 07:00 Creatinine 0.8 mg/dL (0.55-1.3) 03/01/20 07:00 Est GFR (CKD-EPI)AfAm 97.55 03/01/20 07:00 Est GFR (CKD-EPI)NonAf 84.17 03/01/20 07:00 Random Glucose 115 mg/dL (74-106) H 03/03/20 07:20 Calcium 9.8 mg/dL (8.5-10.1) 03/01/20 07:00 Total Bilirubin 0.6 mg/dL (0.2-1) 03/01/20 07:00 AST 17 U/L (15-37) 03/01/20 07:00 ALT 28 U/L (13-61) 03/01/20 07:00 Alkaline Phosphatase 86 U/L (45-117) 03/01/20 07:00 Total Protein 6.8 g/dl (6.4-8.2) 03/01/20 07:00 Albumin 3.5 g/dl (3.4-5.0) 03/01/20 07:00 POC Urine HCG, Qual Negative 02/29/20 18:46 Syphilis Serology Reactive (NONREACTIVE) A* 02/29/20 07:00 RPR Titer Reactive 1:1 (NONREACTIVE) H 02/29/20 07:00 COVID-19 ([facility]) Not detected (Not Detected) 02/29/20 17:50 Hep C Ab Diagnostic <0.1 s/co ratio (0.0-0.9) 03/01/20 07:00 Labs noted. Pertinent Admission Physical Exam Findings: Withdrawal symptoms. - Treatment Hospital Course: Detox Protocol Followed, Detoxed Safely, Responded well, Discharged Condition Good - Medication Discharge Medications: Ambulatory Orders Budesonide/Formeterol Fumarate [SYMBICORT 80/4.5mcg -] 2 inh PO BID 09/21/19 Famotidine [Pepcid -] 20 mg PO DAILY 09/21/19 Quetiapine Fumarate [Seroquel -] 400 mg PO BID 02/29/20 - AMA Did Patient Leave Against Medical Advice: No
== END 2020-03-05 09:49 | disposition home or self-care (01) | DRG 773 ==
LOC: YASAS 15:23 → Y6N 17:29
PROVIDERS: ADMIT Allergy & Immunology; ATTEND Allergy & Immunology
PROC: HZ2ZZZZ Detoxification Services for Substance Abuse Treatment (ICD-10-PCS; principal; 2020-02-29)
DX: F10.230 Alcohol dependence with withdrawal, uncomplicated (principal); F11.23 Opioid dependence with withdrawal; F12.20 Cannabis dependence, uncomplicated; F17.210 Nicotine dependence, cigarettes, uncomplicated; F19.282 Other psychoactive substance dependence with psychoactive substance-induced sleep disorder; F19.280 Other psychoactive substance dependence with psychoactive substance-induced anxiety disorder; F19.24 Other psychoactive substance dependence with psychoactive substance-induced mood disorder; E23.2 Diabetes insipidus; A53.0 Latent syphilis, unspecified as early or late; J44.9 Chronic obstructive pulmonary disease, unspecified; K21.9 Gastro-esophageal reflux disease without esophagitis; E78.5 Hyperlipidemia, unspecified; M19.90 Unspecified osteoarthritis, unspecified site; M54.30 Sciatica, unspecified side; M53.86 Other specified dorsopathies, lumbar region; R76.11 Nonspecific reaction to tuberculin skin test without active tuberculosis; Z87.19 Personal history of other diseases of the digestive system; Z86.11 Personal history of tuberculosis
CPT/HCPCS: 36415; 71046-TC-FY; 80053; 81025; 82947; 85027; 86593; 86780; 86803; 93005; 93010; C9803; J0735; Q0162; U0003